=== PATIENT | female | born 1965 | race Caucasian/White ===

== ENCOUNTER 2021-06-02 07:21 | Emergency (ER) | payer MEDICAID, OTHER ==
[~2021-06-02] VITALS: Ht 162.6 cm; Wt 63.6 kg
--- NOTE | 2021-06-02 08:08 | NUR ---
Patient back from CT via wheelchair at this time.
[2021-06-02 08:27] LABS: ALANINE AMINOTRANSFERASE 29 U/L (12-78); ALBUMIN 3.5 G/DL (3.4-5.0); ALBUMIN/GLOBULIN RATIO 0.8 (1.1-1.5); ALKALINE PHOSPHATASE 54 IU/L (46-116); ANION GAP 11 (8-16); ASPARTATE AMINO TRANSFERASE 27 U/L (10-37); BILIRUBIN,TOTAL 0.2 MG/DL (0.1-1.0); BLOOD UREA NITROGEN 12 MG/DL (7-18); BUN/CREATININE RATIO 18.8 (6.6-38.0); CALCIUM 8.9 MG/DL (8.5-10.1); CHLORIDE 108 MMOL/L (99-107); CREATININE 0.64 MG/DL (0.40-0.90); GLUCOSE 97 MG/DL (70-104); SODIUM 144 MMOL/L (135-145); TOTAL CARBON DIOXIDE 24.8 MMOL/L (24-32); TOTAL PROTEIN 7.9 G/DL (6.4-8.2); eGFR > 90 ML/MIN
[2021-06-02 08:29] LABS: UA COLLECTION TYPE CLN CATCH MIDSTREAM
[2021-06-02 08:30] LABS: CLARITY,URINE SLIGHTLY CLOUDY (Clear); COLOR,URINE YELLOW (Yellow); GLUCOSE, URINE NEGATIVE (Neg); KETONES,URINE NEGATIVE (Neg); OCCULT BLOOD,URINE NEGATIVE (Neg); PROTEIN,URINE NEGATIVE (Neg)
[2021-06-02 08:31] LABS: LEUKOCYTE ESTERASE ,URINE SMALL (Neg); NITRITES, URINE NEGATIVE (Neg); UROBILINOGEN,URINE 0.2 E.U/dL (0.2-1.0)
[2021-06-02 08:41] LABS: SQUAMOUS EPITHELIAL CELL,UR MODERATE /LPF (FEW)
[2021-06-02 08:44] LABS: BACTERIA,URINE FEW /HPF (Neg); TRANSITIONAL EPI CELLS,URINE FEW /HPF
[2021-06-02 08:45] LABS: RBC,URINE NONE SEEN /HPF (0-2); RENAL CELLS, URINE MODERATE /HPF
[2021-06-02 08:51] LABS: BASOPHILS % (AUTO) 0.9 % (0-1); EOSINOPHILS # (AUTO) 0.2 X10'3 (0-0.9); EOSINOPHILS % (AUTO) 3.8 % (0-6); HEMATOCRIT 40.4 % (35.0-45.0); HEMOGLOBIN 13.6 g/dl (12.0-16.0); LYMPHOCYTES # (AUTO) 1.6 X10'3 (1.1-4.8); LYMPHOCYTES % (AUTO) 29.8 % (21-51); MEAN CORPUSCULAR HEMOGLOBIN 30.2 PG (27.0-31.0); MEAN CORPUSCULAR HGB CONC 33.7 g/dL (33.0-36.5); MEAN CORPUSCULAR VOLUME 89.6 FL (78-98); MONOCYTES # (AUTO) 0.5 X10'3 (0-0.9); MONOCYTES % (AUTO) 10.5 % (2-12); NEUTROPHILS # (AUTO) 2.9 X10'3 (1.8-7.7); PLATELET COUNT 287 X10'3 (140-440); RED BLOOD COUNT 4.51 X10'6 (4.20-5.60); RED CELL DISTRIBUTION WIDTH 13.5 % (11.5-14.5); WHITE BLOOD COUNT 5.2 X10'3 (4.5-11.0)
[2021-06-02 09:19] VITALS: BP 160/104
[2021-06-02] MEDS ORDERED: CEFD300C3 PO (12:46)
== END 2021-06-02 09:20 | disposition home or self-care (01) ==
LOC: ER 07:21
DX: R42 Dizziness and giddiness (principal); R07.89 Other chest pain; R11.0 Nausea; M25.512 Pain in left shoulder; M25.511 Pain in right shoulder; J44.9 Chronic obstructive pulmonary disease, unspecified; F17.200 Nicotine dependence, unspecified, uncomplicated; Z98.890 Other specified postprocedural states; Z72.89 Other problems related to lifestyle; Z88.0 Allergy status to penicillin; Z79.2 Long term (current) use of antibiotics
CPT/HCPCS: 36415; 70450; 71045; 80053; 81001; 83880; 84484; 85025; 87088; 93005; 99285

== ENCOUNTER 2021-06-09 07:29 | Emergency (ER) | payer MEDICAID, OTHER ==
[~2021-06-09] VITALS: Ht 162.6 cm; Wt 65.5 kg
[~2021-06-09 07:29] MED LIST: CEFD300C3 PO
[2021-06-09 07:41] VITALS: BP 135/89
[2021-06-09] MEDS ORDERED: triamcinolone acetonide 40mg/ml inj IM ONE (08:20)
[2021-06-09] MEDS ORDERED: predniSONE 20 mg tablet PO ONE (08:20)
[2021-06-09] MEDS ORDERED: ketorolac trometh inj. 60 MG/2 ML VIAL IM ONE (08:20)
[2021-06-09] MEDS ORDERED: IBUP-1985 PO (08:22)
[2021-06-09] MEDS ORDERED: HYDR-3965 PO (08:22)
[2021-06-09] MEDS ORDERED: FAMO-128 PO (08:22)
== END 2021-06-09 09:24 | disposition home or self-care (01) ==
LOC: ER 07:30
DX: G56.03 Carpal tunnel syndrome, bilateral upper limbs (principal); M54.6 Pain in thoracic spine; R20.2 Paresthesia of skin; R53.1 Weakness; Z72.89 Other problems related to lifestyle; Z88.0 Allergy status to penicillin; Z79.2 Long term (current) use of antibiotics; Z79.899 Other long term (current) drug therapy
CPT/HCPCS: 96372; 99284; J1885; J3301; J7512

== ENCOUNTER 2022-10-23 09:39 | Day surgery (SDC) | payer MEDICARE, MEDICAID ==
[~2022-10-23] VITALS: Ht 162.6 cm; Wt 68.1 kg
[~2022-10-23 09:39] MED LIST changes: -CEFD300C3 PO; +FAMO-128 PO; +IBUP-1985 PO
[2022-10-23 10:00] VITALS: BP 126/78
[2022-10-23] MEDS ORDERED: MIDAZolam 1 MG/ML 5ML VIAL ONE (10:36)
[2022-10-23] MEDS ORDERED: fentaNYL/PF 50MCG/1 ML 2ML syringe ONE (10:36)
[2022-10-23] MEDS ORDERED: diphenhydrAMINE 50 mg/ml inj ONE (10:36)
[2022-10-23] MEDS ORDERED: FLUT1DIS20 INH (10:53)
[2022-10-23] MEDS ORDERED: CHOLECALCIFEROL (10:53)
[2022-10-23] MEDS ORDERED: ALBU1.256 NEB (10:53)
[2022-10-23] MEDS ORDERED: glucagon, human recombinant 1mg kit ONE (11:31)
[2022-10-23 11:51] VITALS: BP 116/96
[2022-10-23 12:01] VITALS: BP 108/69
[2022-10-23 12:11] VITALS: BP 114/69
== END 2022-10-23 12:25 | disposition home or self-care (01) ==
LOC: GI LAB 09:39
PROVIDERS: ATTEND Internal Medicine Gastroenterology
DX: R19.5 Other fecal abnormalities (principal); D12.3 Benign neoplasm of transverse colon; D12.4 Benign neoplasm of descending colon; K64.1 Second degree hemorrhoids
CPT/HCPCS: 45385; 99153; G0500; J1610; J2250; J3010; J7030; Z7512; 99152; A4620; C1889; J1200